=== PATIENT | male | born 1965 | race Caucasian/White ===

== ENCOUNTER 2019-08-22 06:40 | Day surgery (SDC) | payer BC ==
[2019-08-17 11:24] VITALS: BMI 36.6
[~2019-08-22 06:40] MED LIST: DEXAMETHASONE SOD PHOSPHATE 10 MG/ML 1 ML VIAL IV ONE; LACTATED RINGERS 1,000 ML IV SCH; LIDOCAINE 1% 20 ML VIAL (10MG/ML) FOR IV START INTRADERMA PRN; MORPHINE SULFATE 4 MG/ML SYRINGE IV PRN; MOXIFLOXACIN HCL 0.5% DROPS 3 ML BTL OP ONE; TETRACAINE 0.5% OPHTH (PF) DROPS 4 ML BTL OP ONE; TIMOLOL 0.5% OPHTH DROPS 5 ML BTL OP ONE
[2019-08-22] MEDS: CYCLOPENTOLATE 1% OPHTH SOLN 2 ML BTL OP ONE ×3 (07:21→07:32)
[2019-08-22] MEDS: PHENYLEPHRINE 2.5% OPHTH DRP 2ML OP NR ×3 (07:24→07:36)
[2019-08-22 07:34] LABS: Glucose,Whole Blood 143 mg/dL (75-99)
[2019-08-22 07:38] VITALS: TEMP 97.2
[2019-08-22] MEDS ORDERED: MIDAZOLAM 2 MG/2 ML VIAL ONE (08:12)
[2019-08-22] MEDS ORDERED: fentaNYL (PF) 50 MCG/ML 2 ML AMP ONE (08:12)
[2019-08-22] MEDS ORDERED: BALANCED SALT IRRIG SOLN COMB2 15 ML IRRIG.SOLN INTRAOCULA ONE (08:15)
[2019-08-22] MEDS ORDERED: LIDOCAINE 1% (PF) 10MG/ML VIAL SQ ONE (08:16)
[2019-08-22] MEDS ORDERED: DUOVISC KIT (GREEN BOX) INTRAOCULA ONE (08:17)
[2019-08-22] MEDS ORDERED: EPINEPHrine (PF) 0.3 ML in BALANCED SALT IRRIG SOLN COMB2 500 ML IRRIGATION ONE (08:36)
--- NOTE | 2019-08-22 08:45 | P.OP ---
Date of Procedure: 08/22/19 Preoperative Diagnosis: NS & CS & PSC Postoperative Diagnosis: same Procedure(s) Performed: PIOL, OD Implants: MX60 17.00 Anesthesia: MAC Surgeon: Sunday Nguyen Estimated Blood Loss (ml): 0 Pathology: none sent Condition: stable Disposition: observation Indications for Procedure: blurry vision Operative Findings: no complications
[2019-08-22 09:11] VITALS: BP 148/84; PULSE 54; RESP 16
--- NOTE | 2019-08-22 23:58 | OP ---
OPERATIVE REPORT DATE OF SURGERY: August 22, 2019. PROCEDURE PERFORMED: Phacoemulsification of cataract and intraocular lens implant of the right eye. PREOPERATIVE DIAGNOSES: Nuclear sclerosis, cortical sclerosis, posterior subcapsular cataract. POSTOPERATIVE DIAGNOSES: Nuclear sclerosis, cortical sclerosis, posterior subcapsular cataract. OPERATION PERFORMED: Clear cornea phacoemulsification of cataract OD eye. ESTIMATED BLOOD LOSS: Zero. SPECIMEN TAKEN: None. NARRATIVE: After obtaining the appropriate consent, the patient was brought to the Operating Room where the patient was placed under cardiac monitoring and prepped and draped in the usual sterile manner. At the 11 o'clock position a 15 degree super sharp blade was used to create a paracentesis followed by instillation of 1% Xylocaine MPF 50:50 mix with BSS into the anterior chamber. This was followed by Duovisc to stabilize the anterior chamber. At the 9 o'clock position a self-sealing corneal flap incision was created using 2.8 mm michael keratome. A cystotome was used to initiate a continuous tear capsulorrhexis which was completed with the Utrata forceps. A Binkhorst cannula was used to hydrodissect the lens nucleus followed by hydrodelineation. Phacoemulsification of the lens was performed utilizing phacochop in 15.74 seconds at 24% power. The remaining cortical material was removed using the irrigation aspiration mode followed by additional 1% Xylocaine MPF into the anterior chamber followed by viscoelastic to stabilize the capsular bag. A [employer] MX 60E 17.0 diopter posterior chamber lens was placed into the capsular bag without difficulty. The remaining viscoelastic material was removed from the anterior chamber with the irrigation/aspiration. Balanced salt solution was used to normalize the intraocular pressure. The incision was checked for watertight integrity. The patient then received two drops of 0.5% timolol followed by two drops Vigamox, was lightly patched and shielded in the usual manner. There were no complications from the procedure. The patient tolerated the procedure well and was returned to recovery in good condition. MMODL / IJN: [id number] /
== END 2019-08-22 09:25 | disposition home or self-care (01) ==
LOC: OR 06:40
PROVIDERS: ATTEND Ophthalmology
DX: H25.813 Combined forms of age-related cataract, bilateral (principal); I10 Essential (primary) hypertension; E11.9 Type 2 diabetes mellitus without complications; M19.90 Unspecified osteoarthritis, unspecified site; F32.9 Major depressive disorder, single episode, unspecified; H91.90 Unspecified hearing loss, unspecified ear; J30.2 Other seasonal allergic rhinitis; E78.5 Hyperlipidemia, unspecified; E66.9 Obesity, unspecified; Z79.4 Long term (current) use of insulin; Z79.891 Long term (current) use of opiate analgesic; Z79.899 Other long term (current) drug therapy; Z88.0 Allergy status to penicillin; Z68.35 Body mass index [BMI] 35.0-35.9, adult; Z97.3 Presence of spectacles and contact lenses; Z83.3 Family history of diabetes mellitus; Z82.49 Family history of ischemic heart disease and other diseases of the circulatory system; Z82.3 Family history of stroke; Z80.9 Family history of malignant neoplasm, unspecified
CPT/HCPCS: 66984; C1780; J2250; J0171; J3010; J2001

== ENCOUNTER 2019-09-05 06:13 | Day surgery (SDC) | payer BC ==
[2019-09-03 10:33] VITALS: BMI 36.6
[~2019-09-05 06:13] MED LIST changes: -MORPHINE SULFATE 4 MG/ML SYRINGE IV PRN; +ONDANSETRON 4 MG/2 ML VIAL IVP ONE
[2019-09-05] MEDS: CYCLOPENTOLATE 1% OPHTH SOLN 2 ML BTL OP ONE ×3 (06:40→06:58)
[2019-09-05] MEDS: PHENYLEPHRINE 2.5% OPHTH DRP 2ML OP NR ×3 (06:43→07:01)
[2019-09-05 06:55] VITALS: RESP 16; TEMP 97.4
[2019-09-05 07:00] LABS: Glucose,Whole Blood 171 mg/dL (75-99)
[2019-09-05] MEDS ORDERED: fentaNYL (PF) 50 MCG/ML 2 ML AMP ONE (07:35)
[2019-09-05] MEDS ORDERED: MIDAZOLAM 2 MG/2 ML VIAL ONE (07:35)
[2019-09-05] MEDS ORDERED: EPINEPHrine (PF) 0.3 ML in BALANCED SALT IRRIG SOLN COMB2 500 ML IRRIGATION ONE (07:39)
[2019-09-05] MEDS ORDERED: HYALURONATE SODIUM INTRAOCULAR 1 EACH SYRINGE (12MG/ML) INTRAOCULA ONE ×2 (07:46)
[2019-09-05] MEDS ORDERED: LIDOCAINE 1% (PF) 10MG/ML VIAL MISCELLANE ONE (07:47)
[2019-09-05] MEDS ORDERED: BALANCED SALT IRRIG SOLN COMB2 15 ML IRRIG.SOLN INTRAOCULA ONE (07:47)
[2019-09-05 08:07] VITALS: BP 159/91; PULSE 66
[2019-09-05 08:12] LABS: Glucose,Whole Blood 158 mg/dL (75-99)
--- NOTE | 2019-09-05 08:18 | P.OP ---
Date of Procedure: 09/05/19 Preoperative Diagnosis: NS & CS ^ PSC Postoperative Diagnosis: same Procedure(s) Performed: PIOL, OS Implants: MX60E 17.00 Anesthesia: MAC Surgeon: Sunday Nguyen Pathology: none sent Condition: stable Disposition: same day Operative Findings: no complications
--- NOTE | 2019-09-05 21:23 | OP ---
OPERATIVE REPORT DATE OF SURGERY: September 05, 2019. PROCEDURE PERFORMED: Phacoemulsification of cataract and intraocular lens implant of the left eye. CHINESE INSTRUCTOR: PREOPERATIVE DIAGNOSES: Nuclear sclerosis. Cortical sclerosis. Posterior subcapsular cataract. POSTOPERATIVE DIAGNOSES: Nuclear sclerosis. Cortical sclerosis. Posterior subcapsular cataract. OPERATION: Clear cornea phacoemulsification of cataract left OS eye. ESTIMATED BLOOD LOSS: Zero. SPECIMEN TAKEN: None. NARRATIVE: After obtaining the appropriate consent, the patient was brought to the Operating Room where the patient was placed under cardiac monitoring and prepped and draped in the usual sterile manner. At the 5 o'clock position. A 15 degree super sharp blade was used to create a paracentesis followed by instillation of 1% Xylocaine MPF 50:50 mix with BSS into the anterior chamber. This was followed by Amvisc to stabilize the anterior chamber. At the 3 o'clock position a self-sealing corneal flap incision was created using 2.8 mm michael keratome. A cystotome was used to initiate a continuous tear capsulorrhexis which was completed with the Utrata forceps. A Binkhorst cannula was used to hydrodissect the lens nucleus followed by hydrodelineation. Phacoemulsification of the lens was performed utilizing phaco-chop in 13.6 Seconds at 20% power. The remaining cortical material was removed using the irrigation aspiration mode followed by additional 1% Xylocaine MPF into the anterior chamber followed by viscoelastic to stabilize the capsular bag. A [employer]ch [employer] Lomb MX60E 17.0 diopter posterior chamber lens was placed into the capsular bag without difficulty. The remaining viscoelastic material was removed from the anterior chamber with the irrigation/aspiration. Balanced salt solution was used to normalize the intraocular pressure. The incision was checked for watertight integrity. The patient then received two drops of 0.5% timolol followed by two drops Vigamox, was lightly patched and shielded in the usual manner. There were no complications from the procedure. The patient tolerated the procedure well and was returned to recovery in good condition. MMODL / IJN: [id number] /
--- NOTE | 2019-09-10 13:14 | CDI ---
Date: 09.10.19 CDS/Procedures Rn Name: Katey Lal Phone: If any questions, call Mita Mcnally Vehicle Leasing And Rental Manager at [phone] Patient Name: William Rodriguez Admit Date: 09.05.19 Discharge Date: 09.05.19 ATTENTION: The [facility] Coding Staff appreciate your assistance in clarifying documentation. Please respond to the clarification below the line at the bottom and electronically sign. The [facility] Coding staff will review the response and follow-up if needed. Please note: Queries are made part of the Legal Health Record. If you have any questions, please contact the Vehicle Leasing And Rental Manager. Dear Dr Nguyen Please specify which type of DM pt has. On the H&P under major illness summary (page 1) it has DM type 1, on page 5 under final diagnosis it has DM type 2. Thank you for your kind consideration. As a specialist, I cannot say if it's Type I, typically Dx by 20 y/o, or type 2, though he self declared he is Type I. This gentleman was diagnosed in 2010, he would have been 45 y/o. I agree he may be on insulin, but suspect he is truly Type 2. He is currently on metformin, and has not declared he's suffered DKA. If you need a definitive diagnosed, then would clarify with his primary physician. "[email or web address]/art.[email or web address]" for a quick definition. MTDD
--- NOTE | 2019-09-14 11:05 | CDI ---
Date: 09.14.19 CDS/Invoice Control Clerk Name: Katey Lal Phone: If any questions, call Mita Mcnally Intellectual Property Manager at [phone] Patient Name: William Rodriguez Admit Date: 09.05.19 Discharge Date: 09.05.19 ATTENTION: The [facility] Coding Staff appreciate your assistance in clarifying documentation. Please respond to the clarification below the line at the bottom and electronically sign. The [facility] Coding staff will review the response and follow-up if needed. Please note: Queries are made part of the Legal Health Record. If you have any questions, please contact the Intellectual Property Manager. Dear Dr Rivas Your patient had a cataract removal and lens implant, the dictation is not specific as for his DM. I had sent a query to Dr. Nguyen, but he suggested to query the patients primary physician. Please specify which type of DM pt has. On the H&P under major illness summary (page 1) it has DM type 1, on page 5 under final diagnosis it has DM type 2. Thank you for your kind consideration. MTDD
== END 2019-09-05 08:40 | disposition home or self-care (01) ==
LOC: OR 06:13
PROVIDERS: ATTEND Ophthalmology
DX: H25.812 Combined forms of age-related cataract, left eye (principal); E11.36 Type 2 diabetes mellitus with diabetic cataract; F32.9 Major depressive disorder, single episode, unspecified; H91.90 Unspecified hearing loss, unspecified ear; I11.9 Hypertensive heart disease without heart failure; M19.90 Unspecified osteoarthritis, unspecified site; M54.9 Dorsalgia, unspecified; E78.5 Hyperlipidemia, unspecified; J30.2 Other seasonal allergic rhinitis; F17.210 Nicotine dependence, cigarettes, uncomplicated; Z88.0 Allergy status to penicillin; Z98.41 Cataract extraction status, right eye; Z96.1 Presence of intraocular lens; Z91.048 Other nonmedicinal substance allergy status; Z79.899 Other long term (current) drug therapy; Z79.4 Long term (current) use of insulin; Z79.891 Long term (current) use of opiate analgesic; Z80.9 Family history of malignant neoplasm, unspecified; Z83.3 Family history of diabetes mellitus; Z82.49 Family history of ischemic heart disease and other diseases of the circulatory system; Z82.3 Family history of stroke
CPT/HCPCS: 66984; V2632; J2250; J0171; J3010; J2001